=== PATIENT | male | born 1955 | race Native Hawaiian/Other Pacific Islander ===

== ENCOUNTER 2022-05-03 01:33 | Emergency (ER) | payer MEDICARE ==
[~2022-05-03] VITALS: Ht 180.3 cm; Wt 95.5 kg
[2022-05-03 01:43] VITALS: BP 141/90
[2022-05-03] MEDS ORDERED: SERT-158 PO (05:57)
[2022-05-03] MEDS ORDERED: QUET25TA PO (05:58)
[2022-05-03] MEDS ORDERED: HYDR-3831 PO (05:59)
== END 2022-05-03 06:34 | disposition home or self-care (01) ==
LOC: EMS 01:38
DX: F32.9 Major depressive disorder, single episode, unspecified (principal); F41.9 Anxiety disorder, unspecified; Z76.0 Encounter for issue of repeat prescription; I10 Essential (primary) hypertension; E78.00 Pure hypercholesterolemia, unspecified
CPT/HCPCS: 99281; Z7502